=== PATIENT | female | born 1985 | race African-American/Black ===

== ENCOUNTER 2019-05-31 01:06 | Emergency (ER) | payer BC ==
[~2019-05-31] VITALS: Ht 165.1 cm; Wt 122.5 kg
[~2019-05-31 01:06] MED LIST: CIPROFLOXACIN500 M1 PO; EXCEDRIN CAPLE1 EACH; PYRIDIUM200 MG PO
[2019-05-31 01:49] LABS: ABSOLUTE NEUTROPHILS 4.5 thou/uL (1.4-8.2); BASOPHILS 0.6 % (0.0-2.0); EOSINOPHILS 1.4 % (0.0-3.0); HEMATOCRIT 41.5 % (37.0-47.0); LYMPHOCYTES 28.8 % (24.0-44.0); MCH 30.4 pg (26.0-34.0); MCHC 33.8 g/dL (28.0-37.0); MCV 90.1 fL (80.0-100.0); MONOCYTES 7.6 % (1.0-8.0); PLATELET COUNT 236 thou/uL (150-400); POLYS 61.6 % (36.0-66.0); WBC 7.3 thou/uL (4.0-11.0)
[2019-05-31 01:50] LABS: ANION GAP 10 mmol/L (7-16); BUN 12 mg/dL (7-18); CALCIUM 8.8 mg/dL (8.5-10.1); CHLORIDE 102 mmol/L (98-107); CO2 25 mmol/L (21-32); CREATININE 0.8 mg/dL (0.6-1.0); GLUCOSE 175 mg/dL (74-106); POTASSIUM 3.7 mmol/L (3.5-5.1); SODIUM 137 mmol/L (136-145)
[2019-05-31 01:59] LABS: ALBUMIN 3.7 g/dL (3.4-5.0); MAGNESIUM 1.7 mg/dL (1.8-2.4); SGOT 25 U/L (15-37); SGPT 31 U/L (30-65); TOTAL BILIRUBIN 0.4 mg/dL (<0.1-1.0); TOTAL PROTEIN 7.3 g/dL (6.4-8.2); TROPONIN-I <0.06 ng/mL (<0.06)
[2019-05-31] MEDS ORDERED: NAPROSYN500 MG PO (03:10)
[2019-05-31] MEDS ORDERED: ATIVAN0.5 M1 PO (03:11)
[2019-05-31 04:11] VITALS: BP 133/66
--- NOTE | 2019-05-31 09:48 | EKG ---
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: [facility] : 1985 Requested By: Javed Perez Order Number: [id number] MD: Zeb Ureña Measurements Intervals [place] Rate: 95 P: 6 CT: 149 QRS: -10 QRSD: 89 T: -12 QT: 349 QTc: 439 Interpretive Statements Sinus rhythm Borderline T abnormalities, inferior leads No previous ECG available for comparison Electronically Signed On 05-31-2019 9:47:01 CDT by Zeb Ureña [email or web address] <ELECTRONICALLY SIGNED> By: Zeb Ureña MD, [facility] 05/31/19 0947 0113 2 Zeb Ureña MD, [facility] /EPI
== END 2019-05-31 04:11 | disposition home or self-care (01) ==
LOC: ER 01:06
PROVIDERS: Emergency Medicine
DX: F41.9 Anxiety disorder, unspecified (principal); R20.2 Paresthesia of skin; R07.89 Other chest pain; Z79.82 Long term (current) use of aspirin

== ENCOUNTER 2019-11-12 14:12 | Emergency (ER) | payer BC ==
[~2019-11-12] VITALS: Ht 162.6 cm; Wt 120.2 kg
[~2019-11-12 14:12] MED LIST changes: +ATIVAN0.5 M1 PO; +NAPROSYN500 MG PO
[2019-11-12 14:46] LABS: URINE BILIRUBIN NEGATIVE (Negative); URINE BLOOD NEGATIVE (Negative); URINE CLARITY CLEAR; URINE COLOR YELLOW; URINE GLUCOSE-RANDOM* NEGATIVE (Negative); URINE KETONES NEGATIVE (Negative); URINE LEUKOCYTES-REFLEX NEGATIVE (Negative); URINE NITRITE-REFLEX NEGATIVE (Negative); URINE PROTEIN (DIPSTICK) NEGATIVE (Negative); URINE UROBILINOGEN 0.2 E.U./dl (0.2-1.0)
[2019-11-12 15:47] LABS: ABSOLUTE NEUTROPHILS 4.4 thou/uL (1.4-8.2); BASOPHILS 0.8 % (0.0-2.0); EOSINOPHILS 0.4 % (0.0-3.0); HEMATOCRIT 38.8 % (37.0-47.0); HEMOGLOBIN 13.3 gm/dL (12.0-15.0); LYMPHOCYTES 19.5 % (24.0-44.0); MCH 30.7 pg (26.0-34.0); MCHC 34.1 g/dL (28.0-37.0); MCV 89.9 fL (80.0-100.0); MONOCYTES 7.5 % (1.0-8.0); PLATELET COUNT 245 thou/uL (150-400); POLYS 71.8 % (36.0-66.0); RBC 4.32 mil/uL (4.20-5.00); RDW 13.4 % (10.5-14.5); WBC 6.2 thou/uL (4.0-11.0)
[2019-11-12 16:04] LABS: ANION GAP 9 mmol/L (7-16); BUN 7 mg/dL (7-18); CALCIUM 8.9 mg/dL (8.5-10.1); CHLORIDE 103 mmol/L (98-107); CO2 25 mmol/L (21-32); CREATININE 0.7 mg/dL (0.6-1.0); GLUCOSE 121 mg/dL (74-106); POTASSIUM 3.8 mmol/L (3.5-5.1); SODIUM 137 mmol/L (136-145)
[2019-11-12 16:14] LABS: ALBUMIN 3.8 g/dL (3.4-5.0); SGOT 17 U/L (15-37); SGPT 26 U/L (30-65); TOTAL BILIRUBIN 0.5 mg/dL (0.2-1.0); TOTAL PROTEIN 7.8 g/dL (6.4-8.2); TROPONIN-I <0.06 ng/mL (<0.06)
[2019-11-12] MEDS ORDERED: FLAGYL500 M1 PO (16:24)
[2019-11-12 17:08] VITALS: BP 123/76
--- NOTE | 2019-11-13 10:15 | EKG ---
[facility] [place] [address] ELECTROCARDIOGRAM REPORT Name: RICHIE NULL Room #: DEP [facility]#: [id number] Admission: 11/12/19 Attend Phys: Discharge: 11/12/19 Date of : [birth year] Report #: [id number] THIS REPORT FOR: cc: [facility] - Clinic physician unknown [facility] - Clinic physician unknown Zeb Ureña MD [facility] THIS REPORT FOR: //name// 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: [facility] : 1985 Requested By: Guillermo Mir Order Number: [id number] MD: Zeb Ureña Measurements Intervals [place] Rate: 69 P: 30 [place]: 151 QRS: -9 QRSD: 90 T: -26 QT: 390 QTc: 418 Interpretive Statements Sinus rhythm Nonspecific T abnormalities, inferior leads Compared to ECG 05/31/2019 01:13:22 No significant changes Electronically Signed On 11-13-2019 10:15:42 CDT by Zeb Ureña [email or web address] <ELECTRONICALLY SIGNED> By: Zeb Ureña MD, [facility] 11/13/19 1015 1513 1513 Zeb Ureña MD, [facility] /EPI
== END 2019-11-12 17:09 | disposition home or self-care (01) ==
LOC: ER 14:12
PROVIDERS: Physician Assistant
DX: F41.9 Anxiety disorder, unspecified (principal); N76.0 Acute vaginitis; J02.9 Acute pharyngitis, unspecified; R07.89 Other chest pain; H92.02 Otalgia, left ear

== ENCOUNTER 2019-11-13 19:49 | Emergency (ER) | payer BC ==
[~2019-11-13] VITALS: Ht 162.6 cm; Wt 120.2 kg
[~2019-11-13 19:49] MED LIST changes: +FLAGYL500 M1 PO
[2019-11-13 22:12] VITALS: BP 124/74
--- NOTE | 2019-11-14 08:31 | EKG ---
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: [place] : 1985 Requested By: Boy Rodriguez Order Number: [id number] MD: Zeb Ureña Measurements Intervals [place] Rate: 61 P: 21 [place]: 150 QRS: -6 QRSD: 93 T: -16 QT: 405 QTc: 408 Interpretive Statements Sinus rhythm Nonspecific T abnormalities, inferior leads Compared to ECG 11/12/2019 15:13:26 No significant changes Electronically Signed On 11-14-2019 8:31:35 CDT by Zeb Ureña [email or web address] <ELECTRONICALLY SIGNED> By: Zeb Ureña MD, [facility] 11/14/19 0831 32 Zeb Ureña MD, [facility] /EPI
== END 2019-11-13 22:12 | disposition home or self-care (01) ==
LOC: ER 19:49
DX: R42 Dizziness and giddiness (principal); R20.0 Anesthesia of skin; R19.7 Diarrhea, unspecified; Z79.899 Other long term (current) drug therapy